=== PATIENT | female | born 1990 | race Caucasian/White ===

== ENCOUNTER 2020-02-06 15:40 | Emergency (ER) | payer OTHER ==
[2020-02-06 15:48] VITALS: TEMP 98.1
[2020-02-06 16:25] LABS: Appearance,Urine Bloody (Clear); Color,Urine Red; RBC,Urine >182 /hpf (0-5); WBC,Urine >182 /hpf (0-5)
[2020-02-06 16:26] LABS: Basophils % (A) 0 %; Eosinophils # (A) 0.1 k/uL (0-0.7); Eosinophils % (A) 1 %; HCT 39.9 % (34.0-46.0); HGB 13.4 gm/dL (11.4-16.0); Lymphocytes # (A) 1.6 k/uL (1.0-4.8); Lymphocytes % (A) 15 %; MCH 29.1 pg (25.0-35.0); MCHC 33.5 g/dL (31.0-37.0); MCV 86.7 fL (80.0-100.0); Mean Platelet Volume 7.5; Monocytes # (A) 0.3 k/uL (0-1.0); Monocytes % (A) 3 %; Neutrophils # (A) 8.5 k/uL (1.3-7.7); Neutrophils % (A) 80 %; Platelet Count 312 k/uL (150-450); RDW 12.5 % (11.5-15.5); WBC 10.6 k/uL (3.8-10.6)
--- NOTE | 2020-02-06 16:34 | ED ---
Female Urogenital HPI - General Chief complaint: Vaginal Bleeding Stated complaint: 11 wks preg/cramping & bleeding Time Seen by Provider: 02/06/20 15:48 Source: patient, RN notes reviewed Mode of arrival: ambulatory Limitations: no limitations - History of Present Illness Initial comments: This a 30-year-old female presents emergency Department with chief complaint of abdominal cramping vaginal bleeding . Patient states that she is approximately 11 weeks and 3 days states that she is A0 as scheduled see Dr. Chaudhary. Patient had confirmatory ultrasound and lab work at Center. Patient denies any severe abdominal pains time states she is passing some clots states that it's uncontrollably bleeding. She denies feeling dizzy, lightheaded, chest pain or shortness of breath. Patient states that she did not see any tissue products. - Related Data Allergies Allergy/AdvReac Type Severity Reaction Status Date / Time Penicillins Allergy Rash/Hives Verified 02/06/20 15:48 Review of Systems ROS Statement: Those systems with pertinent positive or pertinent negative responses have been documented in the HPI. ROS Other: All systems not noted in ROS Statement are negative. Past Medical History Past Medical History: No Reported History History of Any Multi-Drug Resistant Organisms: None Reported Past Surgical History: No Surgical Hx Reported Past Psychological History: No Psychological Hx Reported Smoking Status: Never smoker Past Alcohol Use History: None Reported Past Drug Use History: None Reported General Exam Limitations: no limitations General appearance: alert, in no apparent distress, anxious (Patient is tearful) Head exam: Present: atraumatic, normocephalic, normal inspection Eye exam: Present: normal appearance, PERRL, EOMI. Absent: scleral icterus, conjunctival injection, periorbital swelling ENT exam: Present: normal exam, normal oropharynx, mucous membranes moist Neck exam: Present: normal inspection. Absent: tenderness, meningismus, lymphadenopathy Respiratory exam: Present: normal lung sounds bilaterally. Absent: respiratory distress, wheezes, rales, rhonchi, stridor Cardiovascular Exam: Present: regular rate, normal rhythm, normal heart sounds. Absent: systolic murmur, diastolic murmur, rubs, gallop, clicks GI/Abdominal exam: Present: soft, normal bowel sounds. Absent: distended, tenderness, guarding, rebound, rigid Back exam: Absent: CVA tenderness (R), CVA tenderness (L) Neurological exam: Present: alert, oriented X3, CN II-XII intact Skin exam: Present: warm, dry, intact, normal color. Absent: rash Course Vital Signs 02/06/20 15:44 Temperature 98.1 F Pulse Rate 101 H Respiratory 18 Rate Blood Pressure 129/79 O2 Sat by Pulse 100 Oximetry Medical Decision Making - Medical Decision Making 22-year-old female presented for vaginal bleeding and . Patient had ultrasound this time which does not reveal any IUP. Spontaneous is noted at this time. Patient is O+ blood type does not require RhoGAM. Patient will follow-up with [facility] for follow-up. - Lab Data Result diagrams: 02/06/20 16:10 Lab Results 02/06/20 02/06/20 02/06/20 Range/Units 16:05 16:10 16:10 WBC 10.6 (3.8-10.6) k/uL RBC 4.60 (3.80-5.40) m/uL Hgb 13.4 (11.4-16.0) gm/dL Hct 39.9 (34.0-46.0) % MCV 86.7 (80.0-100.0) fL MCH 29.1 (25.0-35.0) pg MCHC 33.5 (31.0-37.0) g/dL RDW 12.5 (11.5-15.5) % Plt Count 312 (150-450) k/uL Neutrophils % 80 % Lymphocytes % 15 % Monocytes % 3 % Eosinophils % 1 % Basophils % 0 % Neutrophils # 8.5 H (1.3-7.7) k/uL Lymphocytes # 1.6 (1.0-4.8) k/uL Monocytes # 0.3 (0-1.0) k/uL Eosinophils # 0.1 (0-0.7) k/uL Basophils # 0.0 (0-0.2) k/uL Urine Color Red Urine Appearance Bloody H (Clear) Urine RBC >182 H (0-5) /hpf Urine WBC >182 H (0-5) /hpf Urine WBC Clumps Many H (None) /hpf Blood Type O Positive Blood Type Recheck No Previous Record Bld Type Recheck Status [facility] ONLY Disposition Clinical Impression: Miscarriage Disposition: HOME SELF-CARE Condition: Stable Instructions (If sedation given, give patient instructions): Miscarriage (ED) Additional Instructions: Please follow-up with your [facility]. Please return to the Emergency Department if symptoms worsen or any other concerns. Is patient prescribed a controlled substance at d/c from ED?: No Referrals: [facility] [Primary Care Provider] - 1-2 days Time of Disposition: 17:11
--- NOTE | 2020-02-06 16:57 | US ---
EXAMINATION TYPE: Transabdominal DATE OF EXAM: 02/06/2020 4:36 PM COMPARISON: NONE CLINICAL HISTORY: heart tone. Pelvic pain, heavy vaginal bleeding today EXAM PERFORMED: Transvaginal (TV) and Transabdominal (TA) EXAM MEASUREMENTS: GESTATIONAL AGE / DATING Physician Established: Not yet established Dates by LMP: (12 weeks/3 days) EDC: 08/17/20 Dates by First Scan: No previous this is first scan Dates by Current Scan for: No IUP seen at this time MATERNAL ANATOMY Uterus: 10.0 x 4.3 x 5.3cm Right Ovary: 2.9 x 1.6 x 2.0cm Left Ovary: 2.7 x 1.7 x 1.7cm Post CDS / Adnexa: free fluid posterior cul-de-sac Presence of free fluid: yes GESTATION / SURVEY IUP: No IUP seen at this time Date of LMP: 11/11/19 Beta HcG (if available): Not available at this time No evidence of IUP at this time. Heterogeneous endometrium. Free fluid posterior cul-de-sac IMPRESSION: 1. Small to moderate free fluid within the pelvis. 2. No intrauterine gestation identified. Spontaneous should be considered. Ectopic cannot be excluded. Correlation with beta-hCG is recommended.
[2020-02-06 17:11] VITALS: BP 120/81; PULSE 98; RESP 16
== END 2020-02-06 17:21 | disposition home or self-care (01) ==
LOC: EC 15:40
DX: O03.9 Complete or unspecified spontaneous abortion without complication (principal); Z88.0 Allergy status to penicillin
CPT/HCPCS: 36415; 76801; 76817; 81001; 85025; 86900; 86901; 87086; 99284